=== PATIENT | male | born 1985 | race Caucasian/White ===

== ENCOUNTER 2018-01-23 14:25 | Emergency (ER) | payer MEDICAID ==
[~2018-01-23] VITALS: Ht 172.7 cm; Wt 87.0 kg
[~2018-01-23 14:25] MED LIST: HYDR-882 PO
[2018-01-23] MEDS ORDERED: METOCLOPRAMIDE 5 MG/ML, 2ML IVPush ONE (15:00)
[2018-01-23] MEDS ORDERED: MAALOX/HYOSCYAMINE/LIDOCAINE 45 ML BTL PO ONE (15:00)
[2018-01-23] MEDS ORDERED: ONDANSETRON ODT 4 MG PO ONE (15:00)
[2018-01-23] MEDS ORDERED: PANTOPRAZOLE 40 MG IV ONE (15:32)
[2018-01-23] MEDS ORDERED: MAALOX/HYOSCYAMINE/LIDOCAINE 45 ML BTL ONE (15:32)
[2018-01-23] MEDS ORDERED: METOCLOPRAMIDE 5 MG/ML, 2ML ONE (15:32)
[2018-01-23] MEDS ORDERED: ONDANSETRON ODT 4 MG ONE (15:32)
[2018-01-23 15:35] LABS: BASOPHILS # (AUTO) 0.04 x10^3/uL (0-0.1); BASOPHILS % (AUTO) 0 % (0-1); EOSINOPHILS # (AUTO) 0.17 x10^3/uL (0-0.4); EOSINOPHILS % (AUTO) 2 % (1-7); LYMPHOCYTES # (AUTO) 2.19 x10^3/uL (1-3.4); LYMPHOCYTES % (AUTO) 22 % (22-44); MD NO; MEAN CORPUSCULAR HEMOGLOBIN 32.7 pg (27.5-34.5); MEAN CORPUSCULAR VOLUME 96.4 fL (81-97); MEAN PLATELET VOLUME 7.9 fL (7.4-10.4); MONOCYTES # (AUTO) 1.08 x10^3/uL (0.2-0.8); MONOCYTES % (AUTO) 11 % (2-9); NEUTROPHILS # (AUTO) 6.53 x10^3/uL (1.8-6.8); NEUTROPHILS % (AUTO) 65 % (42-75); PLATELET COUNT 405 x10^3/uL (130-400); RED BLOOD COUNT 4.63 x10^6/uL (4.38-5.82); RED CELL DISTRIBUTION WIDTH 13.8 % (9.4-14.8)
[2018-01-23 15:40] LABS: ALANINE AMINOTRANSFERASE 56 U/L (12-78); ALBUMIN 4.1 g/dL (3.4-5.0); ANION GAP 10 mmol/L (5-15); CALCIUM 8.9 mg/dL (8.5-10.1); CHLORIDE 102 mmol/L (98-107); CREATININE 1.24 mg/dL (0.7-1.3)
[2018-01-23 15:42] LABS: ALKALINE PHOSPHATASE 88 U/L (45-117); TOTAL PROTEIN 8.5 g/dL (6.4-8.2)
[2018-01-23 15:45] VITALS: BP 130/112
[2018-01-23] MEDS ORDERED: PANTOPRAZOLE 40 MG IV IVPush SCH (16:00)
[2018-01-23] MEDS ORDERED: PANTOPRAZOLE 40 MG IV IVPush ONE (16:30)
[2018-01-24] MEDS ORDERED: PANTOPRAZOLE 40 MG IV IVPush SCH (09:00)
== END 2018-01-23 16:41 | disposition home or self-care (01) ==
LOC: ED 16:05
DX: R11.2 Nausea with vomiting, unspecified (principal); R10.13 Epigastric pain; F15.10 Other stimulant abuse, uncomplicated
CPT/HCPCS: 36415; 80053; 83690; 85025; 86677; 96374; 96375; 99284; C9113; J2765